=== PATIENT | male | born 1970 | race African-American/Black ===

== ENCOUNTER 2023-09-16 15:24 | Emergency (ER) | payer OTHER ==
[~2023-09-16] VITALS: Ht 182.9 cm; Wt 79.0 kg
[2023-09-16 15:27] VITALS: O2SAT 96
[2023-09-16] MEDS: LEVETIRACETAM 500MG PREMIX 100 ML IV ONE ×2 (16:09→16:32)
[2023-09-16] MEDS: LACTATED RINGERS 1,000 ML IV SCH (16:09)
[2023-09-16 16:51] LABS: CHLORIDE 107 mEq/L (98-107); POTASSIUM 4.4 mEq/L (3.5-5.1); SODIUM 138 mEq/L (136-145)
[2023-09-16 16:52] LABS: CALCIUM 9.1 mg/dL (8.7-10.4); CARBON DIOXIDE 26 mEq/L (21-32)
[2023-09-16 16:57] LABS: GLUCOSE 79 mg/dL (70-105); UREA NITROGEN BLOOD 10 mg/dL (9-23)
[2023-09-16 16:58] LABS: ALANINE AMINOTRANSFERASE 21 IU/L (10-49)
[2023-09-16 16:59] LABS: ALBUMIN 4.4 g/dL (3.2-4.8); ASPARTATE AMINOTRANSFERASE 29 IU/L (<34); BILIRUBIN DIRECT 0.1 mg/dL (<=3.0); BILIRUBIN TOTAL 0.3 mg/dL (0.1-1.0); PROTEIN TOTAL 7.2 g/dL (6.0-8.3)
[2023-09-16 17:03] LABS: BASOPHILS % 1.3 % (0.0-2.0); EOSINOPHILS % 3.2 % (0.0-5.0); HEMATOCRIT. 43.3 % (42.0-52.0); HEMOGLOBIN. 15.1 g/dL (14.0-18.0); LYMPHOCYTES % 56.9 % (20.0-50.0); MEAN CORPUSCULAR HEMOGLOBIN 32.1 pg (28.0-32.0); MEAN CORPUSCULAR HGB CONC 34.8 g/dL (31.0-37.0); MEAN CORPUSCULAR VOLUME 92.3 fL (80.0-94.0); MEAN PLATELET VOLUME 6.8 fl (7.4-10.4); MONOCYTES % 9.8 % (2.0-8.0); NEUTROPHILS % 28.8 % (40.0-76.0); PLATELET 214 x1000/uL (130-400); RED CELL DISTRIBUTION WIDTH 13.4 % (11.6-14.6); WHITE BLOOD COUNT 3.5 x1000/uL (4.5-11.0)
[2023-09-16] MEDS: KETOROLAC 15MG/ML VIAL IV ONE (17:35)
[2023-09-16 17:38] VITALS: BP 135/85; PULSE 90; RESP 16; TEMP 98.2
== END 2023-09-16 17:39 | disposition home or self-care (01) ==
LOC: ER 15:24
DX: S42.292A Other displaced fracture of upper end of left humerus, initial encounter for closed fracture (principal); X58.XXXA Exposure to other specified factors, initial encounter; R56.9 Unspecified convulsions; Y93.89 Activity, other specified; Y92.89 Other specified places as the place of occurrence of the external cause; Y99.8 Other external cause status
CPT/HCPCS: 80076; 80048; 85025; 36415; 73030; 70450; 96374; 99285; J1953; J1885; Z7610 ×3; A4565

== ENCOUNTER 2023-11-09 10:40 | Emergency (ER) | payer OTHER ==
[~2023-11-09] VITALS: Ht 182.9 cm; Wt 83.0 kg
[2023-11-09 10:42] VITALS: O2SAT 100
[2023-11-09] MEDS: LEVETIRACETAM 1000MG PREMIX 100 ML IV ONE (11:06)
[2023-11-09 11:18] LABS: BASOPHILS % 2.2 % (0.0-2.0); EOSINOPHILS % 2.1 % (0.0-5.0); HEMATOCRIT. 42.4 % (42.0-52.0); HEMOGLOBIN. 13.8 g/dL (14.0-18.0); LYMPHOCYTES % 45.5 % (20.0-50.0); MEAN CORPUSCULAR HEMOGLOBIN 31.3 pg (28.0-32.0); MEAN CORPUSCULAR HGB CONC 32.6 g/dL (31.0-37.0); MEAN CORPUSCULAR VOLUME 96.2 fL (80.0-94.0); MEAN PLATELET VOLUME 6.2 fl (7.4-10.4); MONOCYTES % 9.8 % (2.0-8.0); NEUTROPHILS % 40.4 % (40.0-76.0); PLATELET 198 x1000/uL (130-400); RED BLOOD CELL COUNT 4.41 mill/uL (4.7-6.1); RED CELL DISTRIBUTION WIDTH 13.9 % (11.6-14.6); WHITE BLOOD COUNT 3.3 x1000/uL (4.5-11.0)
[2023-11-09 11:28] LABS: CHLORIDE 110 mEq/L (98-107)
[2023-11-09 11:29] LABS: CARBON DIOXIDE 24 mEq/L (21-32); SODIUM 138 mEq/L (136-145)
[2023-11-09 11:35] LABS: GLUCOSE 105 mg/dL (70-105); UREA NITROGEN BLOOD 12 mg/dL (9-23)
[2023-11-09 11:40] LABS: ETHANOL BLOOD < 10 mg/dL (<10)
[2023-11-09 14:54] LABS: CLARITY URINE CLEAR (CLEAR); COLOR URINE YELLOW (YELLOW); GLUCOSE URINE NEGATIVE (NEGATIVE); KETONES URINE NEGATIVE (NEGATIVE); LEUKOCYTE ESTERASE URINE NEGATIVE (NEGATIVE); NITRITE URINE NEGATIVE (NEGATIVE); OCCULT BLOOD URINE NEGATIVE (NEGATIVE); PH URINE 6.5 (4.5-8.0); PROTEIN URINE NEGATIVE (NEGATIVE); SPECIFIC GRAVITY URINE 1.016 (1.005-1.030); UROBILINOGEN URINE 0.2 E.U./dL (0.2-1.0)
[2023-11-09 15:01] LABS: *AMPHETAMINES SCREEN URINE NEGATIVE (NEGATIVE); *BARBITURATES SCREEN URINE NEGATIVE (NEGATIVE); *BENZODIAZEPINES SCREEN URINE PRESUMPTIVE POSITIVE (NEGATIVE); *COCAINE SCREEN URINE NEGATIVE (NEGATIVE); CANNABINOID URINE SCREEN PRESUMPTIVE POSITIVE (NEGATIVE); ECSTASY MDMA SCREEN URINE NEGATIVE (NEGATIVE); METHADONE URINE SCREEN NEGATIVE (NEGATIVE); OPIATES URINE SCREEN NEGATIVE (NEGATIVE); PHENCYCLIDINE URINE SCREEN NEGATIVE (NEGATIVE)
[2023-11-09 16:09] VITALS: BP 122/87; PULSE 60; RESP 15
== END 2023-11-09 16:56 | disposition short-term general hospital (02) ==
LOC: ER 11:03
DX: G40.909 Epilepsy, unspecified, not intractable, without status epilepticus (principal); R41.0 Disorientation, unspecified
CPT/HCPCS: 80305; 80048; 81003; 80320; 85025; 36415; 70450; 93005; 96365; 96366; 99285; J1953; G0480

== ENCOUNTER 2025-01-22 17:15 | Emergency (ER) | payer OTHER ==
[~2025-01-22] VITALS: Ht 180.3 cm; Wt 73.0 kg
[2025-01-22 17:23] VITALS: O2SAT 98
[2025-01-22] MEDS: METOCLOPRAMIDE HCL 10MG/2ML VIAL IV ONE (18:28)
[2025-01-22] MEDS: KETOROLAC 15MG/ML VIAL IV ONE (18:28)
[2025-01-22] MEDS: SODIUM CHLORIDE 0.9% 1,000 ML IV ONE (18:29)
[2025-01-22 19:18] LABS: CLARITY URINE CLEAR (CLEAR); COLOR URINE YELLOW (YELLOW); GLUCOSE URINE NEGATIVE (NEGATIVE); KETONES URINE NEGATIVE (NEGATIVE); LEUKOCYTE ESTERASE URINE NEGATIVE (NEGATIVE); NITRITE URINE NEGATIVE (NEGATIVE); OCCULT BLOOD URINE NEGATIVE (NEGATIVE); PH URINE 7.0 (4.5-8.0); PROTEIN URINE TRACE (NEGATIVE); SPECIFIC GRAVITY URINE 1.019 (1.005-1.030); UROBILINOGEN URINE 0.2 E.U./dL (0.2-1.0)
[2025-01-22 19:20] LABS: *AMPHETAMINES SCREEN URINE NEGATIVE (NEGATIVE)
[2025-01-22 19:21] LABS: *BARBITURATES SCREEN URINE NEGATIVE (NEGATIVE); *BENZODIAZEPINES SCREEN URINE PRESUMPTIVE POSITIVE (NEGATIVE); *COCAINE SCREEN URINE NEGATIVE (NEGATIVE); CANNABINOID URINE SCREEN PRESUMPTIVE POSITIVE (NEGATIVE); ECSTASY MDMA SCREEN URINE NEGATIVE (NEGATIVE); METHADONE URINE SCREEN NEGATIVE (NEGATIVE); OPIATES URINE SCREEN NEGATIVE (NEGATIVE); PHENCYCLIDINE URINE SCREEN NEGATIVE (NEGATIVE)
[2025-01-22 19:53] LABS: BACTERIA URINE 1+
[2025-01-22 19:54] LABS: RBC URINE NONE SEEN /hpf (0-2); SQUAMOUS EPITHELIAL CELL URINE FEW /lpf (RARE/1+); WBC URINE 0-2 /hpf (0-2)
[2025-01-22 20:02] LABS: BASOPHILS % 2.5 % (0.0-2.0); EOSINOPHILS % 2.4 % (0.0-5.0); HEMATOCRIT. 37.2 % (42.0-52.0); HEMOGLOBIN. 12.6 g/dL (14.0-18.0); LYMPHOCYTES % 39.8 % (20.0-50.0); MEAN PLATELET VOLUME 6.3 fl (7.4-10.4); MONOCYTES % 9.9 % (2.0-8.0); NEUTROPHILS % 45.4 % (40.0-76.0); PLATELET 187 x1000/uL (130-400); RED BLOOD CELL COUNT 3.90 mill/uL (4.7-6.1); RED CELL DISTRIBUTION WIDTH 13.5 % (11.6-14.6)
[2025-01-22 20:16] LABS: CREATININE 0.9 mg/dL (0.6-1.3); UREA NITROGEN BLOOD 11 mg/dL (9-23)
[2025-01-22 20:18] LABS: ASPARTATE AMINOTRANSFERASE 81 IU/L (<34); BILIRUBIN DIRECT < 0.1 mg/dL (<=3.0); BILIRUBIN TOTAL 0.3 mg/dL (0.1-1.0); PROTEIN TOTAL 6.9 g/dL (6.0-8.3)
[2025-01-22 21:33] VITALS: BP 131/76; PULSE 64; RESP 19; TEMP 36.8; O2SAT 98
== END 2025-01-22 21:33 | disposition home or self-care (01) ==
LOC: ER 17:15
DX: R51.9 Headache, unspecified (principal); G40.909 Epilepsy, unspecified, not intractable, without status epilepticus
CPT/HCPCS: 80076; 80305; 80048; 81003; 80320; 85025; 36415; 70450; 96361; 96374; 96375; 99285; J1885; J2765; J7030; Z7610; G0480